=== PATIENT | female | born 1970 | race Hispanic/Latino ===

== ENCOUNTER → 2023-10-30 10:45 | Outpatient (REF) | payer OTHER, SELFPAY ==
[2023-10-30 12:02] LABS: Free T4 1.06 ng/dl (0.78-2.19)
[2023-10-30 12:16] LABS: TSH 1.83 uIU/ml (0.47-4.68)
== END ==
LOC: REG 10:45
PROVIDERS: ATTENDING PHYSICIAN Nurse Practitioner Adult Health
DX: N95.0 Postmenopausal bleeding (principal)
CPT/HCPCS: 36415; 84439; 84443

== ENCOUNTER → 2024-04-29 07:37 | Outpatient (REF) | payer OTHER, SELFPAY | LOC: CLINIC 07:37 | PROVIDERS: ATTENDING PHYSICIAN Nurse Practitioner Adult Health | DX: Z12.31 Encounter for screening mammogram for malignant neoplasm of breast (principal) | CPT/HCPCS: 77063; 77067 ==

== ENCOUNTER → 2024-06-04 09:06 | Outpatient (REF) | payer OTHER, SELFPAY ==
[2024-06-10 17:52] LABS: HPV, High Risk Not Detected; HPV, High Risk Source Cervical
== END ==
LOC: CLINIC 09:06
PROVIDERS: ATTENDING PHYSICIAN Obstetrics & Gynecology Gynecology
DX: Z12.4 Encounter for screening for malignant neoplasm of cervix (principal)
CPT/HCPCS: 87624; G0123

== ENCOUNTER → 2024-07-14 13:18 | Outpatient (REF) | payer OTHER, SELFPAY | LOC: CLINIC 13:18 | PROVIDERS: ATTENDING PHYSICIAN Obstetrics & Gynecology Gynecology; FAMILY PHYSICIAN Nurse Practitioner Adult Health | DX: N95.0 Postmenopausal bleeding (principal) | CPT/HCPCS: 76830; 76856 ==

== ENCOUNTER → 2024-10-01 15:05 | Outpatient (REF) | payer OTHER, SELFPAY | LOC: CLINIC 15:05 | PROVIDERS: ATTENDING PHYSICIAN Obstetrics & Gynecology Gynecology | DX: N95.0 Postmenopausal bleeding (principal) | CPT/HCPCS: 88305 ==